=== PATIENT | male | born 1975 | race Hispanic/Latino ===

== ENCOUNTER 2020-06-08 12:09 | Observation (INO) | payer BC ==
[~2020-06-08] VITALS: Ht 175.3 cm; Wt 112.1 kg
[2020-06-09 12:32] VITALS: BP 136/93
[2020-06-09] MEDS ORDERED: ASPIRIN 81 MG CHEW TAB PO ONE ×3 (12:45)
[2020-06-09] MEDS ORDERED: NORCO 10-325 T1 EACH PO (13:11)
[2020-06-09] MEDS ORDERED: AMPHETAMINE SAL15 MG (13:11)
[2020-06-09] MEDS ORDERED: SUCRALFATE1 GM PO (13:11)
[2020-06-09] MEDS ORDERED: ALLOPURINOL300 MG PO (13:11)
[2020-06-09] MEDS ORDERED: LOSARTAN POTAS100 MG PO (13:11)
[2020-06-09] MEDS ORDERED: OMEPRAZOLE40 MG PO (13:11)
[2020-06-09] MEDS ORDERED: AMLODIPINE BESYL5 MG PO (13:11)
[2020-06-09] MEDS ORDERED: ONDANSETRON ODT8 MG SL (13:11)
[2020-06-09] MEDS ORDERED: TORSEMIDE10 MG PO (13:11)
[2020-06-09 13:43] LABS: HEMOGLOBIN 16.1 g/dL (14.0-18.0); MEAN CORPUSCULAR HEMOGLOBIN 32.1 pg (28-32); MEAN CORPUSCULAR HGB CONC 35.8 g/dL (31-35); MEAN CORPUSCULAR VOLUME 89.8 fL (81-99); PLATELET COUNT 277 x10e3/uL (140-360); RED BLOOD COUNT 5.01 x10e6/uL (4.3-5.7); RED CELL DISTRIBUTION WIDTH 12.1 % (11.7-14.4)
[2020-06-09 14:01] LABS: ALANINE AMINOTRANSFERASE 98 IU/L (0-55); ALBUMIN 3.8 g/dL (3.5-5.0); ALBUMIN/GLOBULIN RATIO 1.3 (0.8-2.0); ALKALINE PHOSPHATASE 47 IU/L (40-150); ANION GAP 16.8 mmol/L (8-16); BLOOD UREA NITROGEN 8 mg/dL (7-26); BUN/CREATININE RATIO 10 (6-25); CALCIUM 8.6 mg/dL (8.4-10.2); CARBON DIOXIDE 21 mmol/L (22-29); CHLORIDE 107 mmol/L (98-107); CREATINE KINASE 87 IU/L (30-200); CREATININE, SERUM 0.83 mg/dL (0.72-1.25); EST GLOMERULAR FILTRATION RATE > 60 ML/MIN (60-); GLUCOSE 136 mg/dL (74-118); POTASSIUM 3.8 mmol/L (3.5-5.1); SODIUM 141 mmol/L (136-145)
[2020-06-09 14:05] LABS: CHOL/HDL RATIO 5.4 (3.9-4.7); CHOLESTEROL 195 MD/DL (0-199); HDL CHOLESTEROL 36 MG/DL (40-60); TRIGLYCERIDES 559 MG/DL (0-149)
[2020-06-09 14:06] LABS: EOSINOPHILS % (MANUAL) 2 % (0-7); LYMPHOCYTES % (MANUAL) 25 % (19-48); MONOCYTES % (MANUAL) 7 % (3.4-9.0); NEUTROPHILS % (MANUAL) 66 % (40-74)
[2020-06-09 14:07] LABS: HYPOCHROMASIA MODE; OVALOCYTES FEW; PLATELET ESTIMATE ADEQUATE; PLATELET MORPHOLOGY COMMENT FEW LARGE; POLYCHROMASIA MODE; RBC MORPHOLOGY COMMENT ABNORMAL
[2020-06-09 14:26] LABS: FREE THYROXINE INDEX 2.5481 (1.4-3.8); THYROID STIMULATING HORMONE 2.954 uIU/mL (0.350-4.940)
[2020-06-09 15:41] VITALS: BP 136/93
[2020-06-09 17:20] LABS: CREATINE KINASE MB < 1.00 ng/mL (0-4.3)
[2020-06-09 20:00] VITALS: BP 144/96
[2020-06-09 21:00] VITALS: BP 144/96
[2020-06-10] VITALS (7 sets, daily range): BP systolic 127–151; BP diastolic 83–105
[2020-06-10] MEDS: HYDROCODONE/APAP 10MG-325MG TAB PO PRN ×3 (03:19→17:49)
[2020-06-10 06:02] LABS: BASOPHILS # (AUTO) 0.1 (0.0-0.1); EOSINOPHILS # (AUTO) 0.2 (0.0-0.4); HEMATOCRIT 46.4 % (38.2-49.6); HEMOGLOBIN 16.7 g/dL (14.0-18.0); LYMPHOCYTES # (AUTO) 1.5 (1.0-3.2); LYMPHOCYTES % 26.2 % (18.0-39.1); MEAN CORPUSCULAR HEMOGLOBIN 32.8 pg (28-32); MEAN CORPUSCULAR VOLUME 91.2 fL (81-99); MONOCYTES # (AUTO) 0.7 (0.2-0.8); MONOCYTES % 12.3 % (4.4-11.3); NEUTROPHILS # (AUTO) 3.2 (2.1-6.9); PLATELET COUNT 276 x10e3/uL (140-360); RED BLOOD COUNT 5.09 x10e6/uL (4.3-5.7); RED CELL DISTRIBUTION WIDTH 12.1 % (11.7-14.4)
[2020-06-10 06:24] LABS: ALANINE AMINOTRANSFERASE 117 IU/L (0-55); ALBUMIN 3.9 g/dL (3.5-5.0); ALBUMIN/GLOBULIN RATIO 1.3 (0.8-2.0); ALKALINE PHOSPHATASE 48 IU/L (40-150); ANION GAP 16.4 mmol/L (8-16); BLOOD UREA NITROGEN 10 mg/dL (7-26); BUN/CREATININE RATIO 11 (6-25); CALCIUM 9.2 mg/dL (8.4-10.2); CARBON DIOXIDE 24 mmol/L (22-29); CHLORIDE 106 mmol/L (98-107); CREATINE KINASE 78 IU/L (30-200); CREATININE, SERUM 0.87 mg/dL (0.72-1.25); EST GLOMERULAR FILTRATION RATE > 60 ML/MIN (60-); GLUCOSE 112 mg/dL (74-118); MAGNESIUM 1.9 MG/DL (1.3-2.1); PHOSPHORUS 3.2 MG/DL (2.3-4.7); POTASSIUM 4.4 mmol/L (3.5-5.1); SODIUM 142 mmol/L (136-145)
[2020-06-10 06:28] LABS: INR 0.91; PROTHROMBIN TIME 12.7 seconds (11.9-14.5)
[2020-06-10] MEDS ORDERED: REGADENOSON 0.4 MG/5 ML SYR IV ONE (08:31)
[2020-06-10] MEDS ORDERED: LOSARTAN POTASSIUM 100 MG TAB PO SCH (09:00)
[2020-06-10] MEDS ORDERED: ALLOPURINOL 300 MG TAB PO SCH (09:00)
[2020-06-10] MEDS ORDERED: TORSEMIDE 10 MG TAB PO SCH (09:00)
[2020-06-10] MEDS ORDERED: PANTOPRAZOLE SOD 40 MG TABEC PO SCH (09:00)
[2020-06-10] MEDS ORDERED: AMLODIPINE BESYLATE 5 MG TAB PO SCH ×2 (09:00)
[2020-06-10] MEDS ORDERED: FENOFIBRATE 145 MG TAB PO SCH (09:00)
[2020-06-10] MEDS: SUCRALFATE 1 GM TAB PO SCH ×2 (12:13→17:28)
[2020-06-10 13:30] LABS: CREATINE KINASE 73 IU/L (30-200)
== END 2020-06-10 19:05 | disposition home or self-care (01) ==
LOC: MED/SURG2 06-09 11:47
PROVIDERS: ADMIT Family Medicine; ATTEND Family Medicine
DX: R07.89 Other chest pain (principal); I10 Essential (primary) hypertension; E78.5 Hyperlipidemia, unspecified; G47.419 Narcolepsy without cataplexy; K21.9 Gastro-esophageal reflux disease without esophagitis; Z98.84 Bariatric surgery status; E78.1 Pure hyperglyceridemia; E66.9 Obesity, unspecified; Z68.36 Body mass index [BMI] 36.0-36.9, adult; F14.11 Cocaine abuse, in remission; F98.8 Other specified behavioral and emotional disorders with onset usually occurring in childhood and adolescence; M10.9 Gout, unspecified; Z11.59 Encounter for screening for other viral diseases; F10.11 Alcohol abuse, in remission; E29.1 Testicular hypofunction; Z86.19 Personal history of other infectious and parasitic diseases
CPT/HCPCS: 36415 ×2; 78452; 80053 ×2; 80061; 82550 ×2; 82553 ×2; 82607; 82746; 83036; 83735; 84100; 84425; 84436; 84443; 84479; 84484 ×2; 85007; 85025; 85027; 85610; 85730; 93005; 93017; 93306; A9502; G0378 ×2; J2785; S0164